=== PATIENT | female | born 1975 | race African-American/Black ===

== ENCOUNTER → 2020-05-07 | Outpatient (CLI) | payer OTHER ==
[~2020-05-07] MED LIST: PROTONIX40 M1 PO; VALIUM5 MG PO
== END ==
LOC: LAB 09:00
PROVIDERS: ATTEND Anesthesiology
DX: Z01.812 Encounter for preprocedural laboratory examination (principal); Z20.822 Contact with and (suspected) exposure to COVID-19

== ENCOUNTER → 2020-05-21 | Outpatient (CLI) | payer OTHER | LOC: LAB 07:33 | PROVIDERS: ATTEND Anesthesiology | DX: Z01.812 Encounter for preprocedural laboratory examination (principal); Z20.822 Contact with and (suspected) exposure to COVID-19 ==